=== PATIENT | female | born 1985 | race Two or more races ===

== ENCOUNTER → 2016-12-22 | Outpatient (CLI) | payer OTHER ==
[2014-07-18 15:33] VITALS: BP 152/97
[2016-12-22 08:09] LABS: ALBUMIN 4.1 g/dL (3.4-5.0); ALBUMIN/GLOBULIN RATIO 0.9 (1.0-1.7); CALCIUM 9.7 mg/dL (8.5-10.1); CREATININE 0.8 mg/dL (0.6-1.0); GFR 82.6; POTASSIUM 4.1 mmol/L (3.5-5.1); TOTAL BILIRUBIN 0.5 mg/dL (0.2-1.0); TOTAL PROTEIN 8.7 g/dL (6.4-8.2)
[2016-12-22 08:10] LABS: CHOLESTEROL/HDL RATIO 3.5
[2016-12-22 08:16] LABS: FREE T4 1.24 ng/dL (0.76-1.46)
[2016-12-22 20:11] LABS: T3 TOTAL 139 ng/dL (71-180)
== END | disposition home or self-care (01) ==
LOC: LAB 07:23
PROVIDERS: ATTEND Nurse Practitioner Family
DX: E03.9 Hypothyroidism, unspecified (principal); R73.03 Prediabetes; E66.01 Morbid (severe) obesity due to excess calories
CPT/HCPCS: 36415; 80053; 80061; 83036; 84439; 84443; 84480

== ENCOUNTER → 2017-01-03 | Outpatient (CLI) | payer OTHER ==
[2014-07-18 15:33] VITALS: BP 152/97
--- NOTE | 2017-01-03 10:27 | RAD ---
MR of the left ankle Indication: Left ankle pain after injury one month ago. Pain medially.. Technique: Standard multiplanar sequences are obtained. Findings: Mild motion degradation. Peroneal tendons: Intact, no dislocation Lateral ligaments: Anterior talofibular and calcaneofibular ligaments are poorly defined, with thickening, compatible with sprain/scarring. No complete rupture seen. Posterior talofibular ligament intact. Tibiofibular syndesmosis:Intact. Medial tendons: Posterior tibial and flexor tendons are intact with minimal tendon sheath fluid. Medial ligaments: Scarring of the deep fibers the deltoid ligament. No acute medial ligament tear. Anterior tendons: Anterior tibial and extensor tendons are intact. Achilles tendon: Intact Plantar aponeurosis: No acute plantar fasciitis Subtalar joints: Patent Tarsal sinus: Intact Talar Dome: Intact Bones: There is mild benign-appearing cystic change within the marrow of the calcaneus. No significant bone lesion or acute fracture. Fluid: Trace fluid in the posterior subtalar joint. No large effusion. Joints: No advanced DJD. Soft tissues: Minimal medial and lateral soft tissue edema. Impression: 1. Sprain/scarring of lateral ankle ligaments without evidence of complete rupture. 2. Scarring of the deep fibers of the medial deltoid ligament. Electronically signed by: Stevie Cox MD (01/03/2017 10:24 AM) [facility]
== END | disposition home or self-care (01) ==
LOC: MRI 07:41
PROVIDERS: ATTEND Nurse Practitioner Gerontology
DX: M25.572 Pain in left ankle and joints of left foot (principal); L90.5 Scar conditions and fibrosis of skin
CPT/HCPCS: 73721

== ENCOUNTER 2017-10-03 16:15 | Emergency (ER) | payer OTHER ==
[2017-10-03 16:43] LABS: ADD MAN DIFF? NO
[2017-10-03] MEDS ORDERED: CONTRAST GIVEN MC (16:45)
[2017-10-03] MEDS ORDERED: IOHEXOL 300 MG/ML 100ML VIAL. IV (16:45)
[2017-10-03 16:46] LABS: BASO # 0.1 x10^3/uL (0.0-0.2); BASO % 1 % (0-3); EOS # 0.2 x10^3/uL (0.0-0.7); EOS % 2 % (0-3); HEMATOCRIT 37.8 % (36.0-47.0); HEMOGLOBIN 12.8 g/dL (12.0-15.5); LYMPH # 2.2 x10^3/uL (1.0-4.8); LYMPH % 18 % (24-48); MEAN CORPUSCULAR HEMOGLOBIN 28 pg (25-35); MEAN CORPUSCULAR HGB CONC 34 g/dL (31-37); MEAN CORPUSCULAR VOLUME 84 fL (79-100); MONO # 0.7 x10^3/uL (0.0-1.1); MONO % 6 % (0-9); NEUT # 8.7 x10^3uL (1.8-7.7); NEUT % 74 % (31-73); PLATELET COUNT 328 x10^3/uL (140-400); RED BLOOD COUNT 4.49 x10^6/uL (3.50-5.40); RED CELL DISTRIBUTION WIDTH 14.3 % (11.5-14.5); WHITE BLOOD COUNT 11.8 x10^3/uL (4.0-11.0)
[2017-10-03 16:47] LABS: URINE HCG POC HCG NEGATIVE (Negative)
[2017-10-03 16:48] LABS: BILIRUBIN,URINE NEGATIVE (NEG); CLARITY,URINE CLOUDY; COLOR,URINE YELLOW; GLUCOSE,URINE NEGATIVE (NEG); NITRITE,URINE NEGATIVE (NEG); PH,URINE 7.5; PROTEIN,URINE 30 mg/dL (NEG-TRACE); UROBILINOGEN,URINE 0.2 mg/dL (0.2 mg/dL)
[2017-10-03] MEDS: ONDANSETRON PF 4 MG/2 ML VIAL. IV ×2 (16:48→18:07)
[2017-10-03] MEDS: KETOROLAC 30 MG/ML INJ. IV (16:49)
[2017-10-03 16:56] LABS: ANION GAP 9 (6-14); BLOOD UREA NITROGEN 15 mg/dL (7-20); BUN/CREATININE RATIO 17 (6-20); CARBON DIOXIDE 28 mmol/L (21-32); CHLORIDE 102 mmol/L (98-107); CREATININE 0.9 mg/dL (0.6-1.0); GFR 71.7; GLUCOSE 114 mg/dL (70-99); POTASSIUM 3.8 mmol/L (3.5-5.1); SODIUM 139 mmol/L (136-145)
[2017-10-03 17:00] LABS: BACTERIA,URINE FEW /HPF (0-FEW); SQUAMOUS EPITHELIAL CELL,UR MOD /LPF; WBC,URINE TNTC /HPF (0-4)
[2017-10-03 17:01] LABS: AMORPHOUS SEDIMENT,UR PRESENT /HPF
[2017-10-03 17:03] LABS: ALBUMIN 3.9 g/dL (3.4-5.0); ALBUMIN/GLOBULIN RATIO 0.9 (1.0-1.7); ALK PHOS 78 U/L (46-116); ALT (SGPT) 27 U/L (14-59); AST (SGOT) 15 U/L (15-37); LIPASE 224 U/L (73-393); TOTAL BILIRUBIN 0.3 mg/dL (0.2-1.0); TOTAL PROTEIN 8.2 g/dL (6.4-8.2)
[2017-10-03] MEDS: fentaNYL PF VIAL 100 MCG/2 ML VIAL IV (17:55)
== END 2017-10-03 18:10 | disposition home or self-care (01) ==
LOC: ER 16:15
DX: N39.0 Urinary tract infection, site not specified (principal); E03.9 Hypothyroidism, unspecified
CPT/HCPCS: 36415; 74176; 80053; 81001; 81025; 83690; 85025; 96365; 96375; 96376; 99285-25; J0690; J1885; J2405; J3010

== ENCOUNTER → 2017-10-25 | Outpatient (CLI) | payer OTHER | END | disposition home or self-care (01) | LOC: ECHO 12:41 | DX: I36.1 Nonrheumatic tricuspid (valve) insufficiency (principal) | CPT/HCPCS: 93306 ==

== ENCOUNTER → 2017-10-25 | Outpatient (CLI) | payer OTHER | END | disposition home or self-care (01) | LOC: US 12:51 | DX: R10.2 Pelvic and perineal pain (principal); E03.9 Hypothyroidism, unspecified | CPT/HCPCS: 76830; 76856 ==

== ENCOUNTER → 2017-11-13 | Outpatient (CLI) | payer OTHER | END | disposition home or self-care (01) | LOC: US 12:12 | DX: I87.2 Venous insufficiency (chronic) (peripheral) (principal) | CPT/HCPCS: 93970 ==

== ENCOUNTER → 2018-03-06 | Outpatient (CLI) | payer OTHER ==
[2017-10-03 17:40] VITALS: BP 126/78
[~2018-03-06] MED LIST: CIPR500T94 PO
[2018-03-06 08:30] LABS: BASO % 1 % (0-3); EOS # 0.2 x10^3/uL (0.0-0.7); EOS % 2 % (0-3); HEMATOCRIT 38.9 % (36.0-47.0); HEMOGLOBIN 13.3 g/dL (12.0-15.5); LYMPH # 2.4 x10^3/uL (1.0-4.8); LYMPH % 31 % (24-48); MEAN CORPUSCULAR HEMOGLOBIN 29 pg (25-35); MEAN CORPUSCULAR HGB CONC 34 g/dL (31-37); MEAN CORPUSCULAR VOLUME 84 fL (79-100); MONO # 0.4 x10^3/uL (0.0-1.1); MONO % 5 % (0-9); NEUT # 4.6 x10^3uL (1.8-7.7); NEUT % 61 % (31-73); PLATELET COUNT 254 x10^3/uL (140-400); RED BLOOD COUNT 4.64 x10^6/uL (3.50-5.40); RED CELL DISTRIBUTION WIDTH 14.6 % (11.5-14.5); WHITE BLOOD COUNT 7.6 x10^3/uL (4.0-11.0)
[2018-03-06 08:50] LABS: ALBUMIN 3.8 g/dL (3.4-5.0); ALBUMIN/GLOBULIN RATIO 0.9 (1.0-1.7); CALCIUM 9.2 mg/dL (8.5-10.1); CREATININE 0.8 mg/dL (0.6-1.0); GFR 82.1; POTASSIUM 3.9 mmol/L (3.5-5.1); TOTAL BILIRUBIN 0.3 mg/dL (0.2-1.0); TOTAL PROTEIN 8.1 g/dL (6.4-8.2)
[2018-03-06 08:51] LABS: CHOLESTEROL/HDL RATIO 4.8
[2018-03-06 10:12] LABS: BILIRUBIN,URINE NEGATIVE (NEG); CLARITY,URINE CLEAR; COLOR,URINE YELLOW; NITRITE,URINE NEGATIVE (NEG); PH,URINE 5.5; PROTEIN,URINE NEGATIVE (NEG-TRACE); UROBILINOGEN,URINE 0.2 mg/dL (0.2 mg/dL)
[2018-03-06 10:27] LABS: SQUAMOUS EPITHELIAL CELL,UR MOD /LPF
[2018-03-06 10:28] LABS: BACTERIA,URINE FEW /HPF (0-FEW); RBC,URINE 0 /HPF (0-2); WBC,URINE OCC /HPF (0-4)
[2018-03-06 19:15] LABS: FSH 5.4 mIU/mL (.); LUTEINIZING HORMONE 3.9 mIU/mL (.); THYROXINE 8.3 ug/dL (4.5-12.0)
[2018-03-06 22:11] LABS: HEMOGLOBIN A1C 5.4 % (4.8-5.6)
== END | disposition home or self-care (01) ==
LOC: LAB 07:46
PROVIDERS: ATTEND Nurse Practitioner Family
DX: E03.9 Hypothyroidism, unspecified (principal); E78.5 Hyperlipidemia, unspecified; R73.03 Prediabetes; L68.0 Hirsutism
CPT/HCPCS: 36415; 80053; 80061; 81001; 82670; 83001; 83002; 83036; 84436; 84443; 85025

== ENCOUNTER → 2019-02-25 | Outpatient (CLI) | payer OTHER ==
[2017-10-03 17:40] VITALS: BP 126/78
[2019-02-25 08:55] LABS: BASO % 1 % (0-3); EOS # 0.2 x10^3/uL (0.0-0.7); EOS % 2 % (0-3); HEMATOCRIT 36.9 % (36.0-47.0); HEMOGLOBIN 12.5 g/dL (12.0-15.5); LYMPH # 2.6 x10^3/uL (1.0-4.8); LYMPH % 36 % (24-48); MEAN CORPUSCULAR HEMOGLOBIN 29 pg (25-35); MEAN CORPUSCULAR HGB CONC 34 g/dL (31-37); MEAN CORPUSCULAR VOLUME 84 fL (79-100); MONO # 0.5 x10^3/uL (0.0-1.1); MONO % 7 % (0-9); NEUT # 4.1 x10^3/uL (1.8-7.7); NEUT % 55 % (31-73); PLATELET COUNT 294 x10^3/uL (140-400); RED BLOOD COUNT 4.39 x10^6/uL (3.50-5.40); RED CELL DISTRIBUTION WIDTH 14.6 % (11.5-14.5); WHITE BLOOD COUNT 7.4 x10^3/uL (4.0-11.0)
[2019-02-25 09:08] LABS: ALBUMIN 3.6 g/dL (3.4-5.0); ALBUMIN/GLOBULIN RATIO 0.9 (1.0-1.7); CALCIUM 9.3 mg/dL (8.5-10.1); CREATININE 0.8 mg/dL (0.6-1.0); GFR 81.6; POTASSIUM 4.3 mmol/L (3.5-5.1); TOTAL BILIRUBIN 0.4 mg/dL (0.2-1.0); TOTAL PROTEIN 7.8 g/dL (6.4-8.2)
[2019-02-25 09:10] LABS: CHOLESTEROL/HDL RATIO 4.4
[2019-02-25 09:21] LABS: FREE T4 1.15 ng/dL (0.76-1.46); THYROID STIM HORMONE (TSH) 2.296 uIU/mL (0.358-3.74)
== END | disposition home or self-care (01) ==
LOC: LAB 08:32
PROVIDERS: ATTEND Nurse Practitioner Family
DX: Z13.228 Encounter for screening for other metabolic disorders (principal); R71.8 Other abnormality of red blood cells; R94.6 Abnormal results of thyroid function studies
CPT/HCPCS: 36415; 80053; 80061; 82306; 82607; 82746; 83540; 83550; 84439; 84443; 85025

== ENCOUNTER → 2019-03-11 | Outpatient (CLI) | payer OTHER ==
[2017-10-03 17:40] VITALS: BP 126/78
--- NOTE | 2019-03-11 11:36 | RAD ---
STUDY: MRI of the right knee without contrast INDICATION: Generalized knee pain. COMPARISON: None. TECHNIQUE: Multiplanar MR imaging of the right knee performed without the use of intravenous or intra-articular contrast. FINDINGS: Menisci: Intact medial and lateral menisci. Cruciate ligaments: Intact ACL and PCL. Collateral ligaments: No acute injury. Mild reactive edema along the MCL. Tendons: Intact extensor tendon complex and additional tendons at the knee. Cartilage: Patellofemoral: Chondral heterogeneity and high-grade partial-thickness loss seen along the inferior aspect of the lateral patellar facet, image 10 series 6 and image 19 series 8. Lateral compartment: Full-thickness chondral defect along the inner margin of the lateral tibial plateau with the defect measuring 6 mm transverse by 7 mm AP. Medial compartment: No full-thickness chondral defect. Bones: The patella is subluxed laterally by approximately 1 cm as well as tilted. The TT-TG distance measures approximately 1.8 cm. No acute fracture. Normal marrow signal. Miscellaneous: Edema seen at the superolateral aspect of Hoffa's fat, image 20 series 8. Moderate volume knee joint effusion. IMPRESSION: 1. No acute internal derangement. 2. Lateral patellar tilt and subluxation and a TT-TG distance of 1.8 cm. Edema localized to the superolateral aspect of Hoffa's fat. The collective appearance is typical of patellar tendon-lateral femoral condyle friction syndrome. 3. High-grade/near full-thickness chondral loss seen at the inferior aspect of the lateral patellar facet. Full-thickness chondral defect at the inner margin of the lateral tibial plateau with the defect measuring 6 mm transverse by 7 mm AP. 4. Moderate volume knee joint effusion. Electronically signed by: JEREMY WHEATLEY MD (03/11/2019 11:33 AM) [id number]
== END | disposition home or self-care (01) ==
LOC: MRI 07:44
PROVIDERS: ATTEND Nurse Practitioner Gerontology
DX: S83.011A Lateral subluxation of right patella, initial encounter (principal); M25.461 Effusion, right knee; X58.XXXA Exposure to other specified factors, initial encounter; Y93.9 Activity, unspecified; Y92.89 Other specified places as the place of occurrence of the external cause; Y99.8 Other external cause status
CPT/HCPCS: 73721

== ENCOUNTER → 2021-06-15 | Outpatient (CLI) | payer OTHER ==
[2017-10-03 17:40] VITALS: BP 126/78
== END ==
LOC: LAB 14:50
PROVIDERS: ATTEND Internal Medicine Pulmonary Disease
DX: U07.1 COVID-19 (principal)
CPT/HCPCS: U0003; U0005

== ENCOUNTER → 2021-09-12 | Outpatient (CLI) | payer OTHER ==
[2017-10-03 17:40] VITALS: BP 126/78
[2021-09-12 14:30] LABS: BASO % 1 % (0-3); EOS # 0.2 x10^3/uL (0.0-0.7); EOS % 3 % (0-3); HEMATOCRIT 38.1 % (36.0-47.0); LYMPH # 2.5 x10^3/uL (1.0-4.8); LYMPH % 33 % (24-48); MEAN CORPUSCULAR HEMOGLOBIN 29 pg (25-35); MEAN CORPUSCULAR HGB CONC 34 g/dL (31-37); MEAN CORPUSCULAR VOLUME 84 fL (79-100); MONO # 0.5 x10^3/uL (0.0-1.1); MONO % 7 % (0-9); NEUT # 4.4 x10^3/uL (1.8-7.7); NEUT % 58 % (31-73); PLATELET COUNT 332 x10^3/uL (140-400); RED BLOOD COUNT 4.54 x10^6/uL (3.50-5.40); RED CELL DISTRIBUTION WIDTH 14.3 % (11.5-14.5); WHITE BLOOD COUNT 7.6 x10^3/uL (4.0-11.0)
[2021-09-12 15:16] LABS: FREE T4 1.2 ng/dL (0.76-1.46)
--- NOTE | 2021-09-12 16:06 | RAD ---
EXAM: ULTRASOUND SOFT TISSUE NECK CLINICAL HISTORY: Reason: Adenopathy LT Neck- Lump per PT / Spl. Instructions: / History: COMPARISON: None TECHNIQUE: Ultrasound examination of the left neck was performed in the area of concern. FINDINGS: There is a lymph node in the upper left neck in the area of concern measuring 2.2 x 1.3 x 0.9 cm. Thi s has a normal fatty hilum and mildly thickened cortex. IMPRESSION: Prominent lymph node with thickened cortex in the left neck. This is most likely reactive. Recommend follow-up ultrasound in 3 months to ensure stability. Alternatively, CT of the neck be obtained if fu rther evaluation of the neck is needed. Electronically signed by: Cinda Nuñez MD (09/12/2021 4:04 PM) [id number]
[2021-09-12 21:53] LABS: THYROID STIM HORMONE (TSH) 1.313 uIU/mL (0.358-3.74)
== END ==
LOC: US 13:52
PROVIDERS: ATTEND Nurse Practitioner Family
DX: R59.1 Generalized enlarged lymph nodes (principal)
CPT/HCPCS: 36415; 76536; 84439; 84443; 85025